=== PATIENT | male | born 1960 | race Caucasian/White ===

== ENCOUNTER 2020-03-31 15:14 | Outpatient (RCR) | payer OTHER | END 2020-04-01 14:32 | disposition home or self-care (01) | LOC: WSOH 15:14 | DX: S56.911A Strain of unspecified muscles, fascia and tendons at forearm level, right arm, initial encounter (principal); Y99.0 Civilian activity done for income or pay ==

== ENCOUNTER 2020-04-30 14:32 | Outpatient (RCR) | payer OTHER | END 2020-07-29 | disposition home or self-care (01) | LOC: WSOH | DX: S56.811D Strain of other muscles, fascia and tendons at forearm level, right arm, subsequent encounter (principal); K21.9 Gastro-esophageal reflux disease without esophagitis; J30.2 Other seasonal allergic rhinitis; Z98.890 Other specified postprocedural states; Y99.0 Civilian activity done for income or pay ==